=== PATIENT | female | born 1975 | race African-American/Black ===

== ENCOUNTER 2024-01-10 00:45 | Emergency (ER) | payer OTHER, SELFPAY ==
--- NOTE | ~2024-01-10 | XR_ITS ---
EXAMINATION: XR chest 1V portable DATE: 01/10/2024 02:14 INDICATION: Dyspnea. TECHNIQUE: A single frontal view of the chest was obtained. COMPARISON: CT abdomen and pelvis 10/09/2010 FINDINGS: There is no pneumonia, pleural effusion, or pneumothorax. The heart size is normal. IMPRESSION: 1. No acute cardiopulmonary disease. Reviewed, dictated and finalized at location E.
[2024-01-10 00:52] VITALS: BP 142/92; PULSE 68; RESP 18; TEMP 36.8; O2SAT 100
--- NOTE | 2024-01-10 01:52 | ECG_ITS ---
Test Date: 2024-01-10 02:03:24 Measurements Intervals [place] Rate: 63 P: 21 MS: 193 QRS: -10 QRSD: 100 T: 21 QT: 419 QTc: 432 Interpretive Statements SINUS RHYTHM VOLTAGE CRITERIA FOR LVH [MEETS CRITERIA IN ONE OF: R(aVL), S(V1), R(V5), R(V5/V6)+S(V1)] POSSIBLE ANTERIOR MYOCARDIAL INFARCTION , OF INDETERMINATE AGE [30 ms Q WAVE IN V3/V4, OR R < 0.2 mV IN V4] No previous ECG available for comparison Electronically Signed On 01-10-2024 13:45:22 CDT by Linus Duarte M.D.
[2024-01-10] MEDS: METOCLOPRAMIDE HCL INJ 10 MG/2 ML VIAL IV PUSH (02:01)
[2024-01-10 02:06] VITALS: BP 155/80; PULSE 66; RESP 18; O2SAT 100
[2024-01-10 02:33] LABS: Influenza A QL RT-PCR Negative (Negative); Influenza B QL RT-PCR Negative (Negative); RSV RNA, RT-PCR Negative (Negative); SARS-CoV-2 RNA PCR Negative (Negative)
--- NOTE | 2024-01-10 05:03 | ED.HA ---
HPI - Headache General Chief Complaint: Headache Stated Complaint: BUCK, shortness of breath Time Seen by Provider: 01/10/24 01:50 History of Present Illness HPI Narrative: Patient had been having some nausea vomiting, and then she woke up in the night and felt slightly short of breath with a headache and generalized malaise. Thinks she may have had food poisoning. No chest pain Related Data Allergies Allergy/AdvReac Type Severity Reaction Status Date / Time No Known Allergies Allergy Mild Verified 10/08/10 22:49 Review of Systems Review of Systems: All systems reviewed & are unremarkable except as noted in HPI and below Exam Narrative: EXAMINATION OF ORGAN SYSTEMS/BODY AREAS: Constitutional: Vital signs per nursing GENERAL: Appears nauseous HEAD: Normal with no signs of head trauma. EYES: EOMI, conjunctiva normal ENT: Hearing grossly intact LUNGS: Nonlabored breathing. HEART: [Regular rate and rhythm] ABD: [Soft], [nontender to palpation] EXT: Normal range of motion SKIN: [No rashes or lesions.] NEURO: [Alert and oriented x 3. No gross focal sensory or strength deficits.] No facial droop. Clear speech, steady normal gait PSYCH: Normal affect Course Vital Signs Vital signs: Vital Signs Temperature 98.2 F 01/10/24 00:52 Pulse Rate 68 01/10/24 00:52 Respiratory Rate 18 01/10/24 00:52 Blood Pressure 142/92 H 01/10/24 00:52 Pulse Oximetry 100 01/10/24 00:52 Oxygen Delivery Room Air 01/10/24 00:52 Temperature 98.2 F 01/10/24 00:52 Pulse Rate 66 01/10/24 02:06 Respiratory Rate 18 01/10/24 02:06 Blood Pressure 155/80 H 01/10/24 02:06 Pulse Oximetry 100 01/10/24 02:06 Oxygen Delivery Room Air 01/10/24 00:52 MDM - Headache MDM Narrative Medical decision making narrative: 48-year-old female presents to the emergency department for headache, nausea, shortness of breath. Patient is hemodynamically stable. No focal neurological or cranial nerve deficits on exam. No meningeal signs. The headache was gradual in onset, it is not exertional and does not appear consistent with subarachnoid hemorrhage or intracranial bleeding. No trauma. Lungs are clear to auscultation bilaterally. Patient is given Reglan for headache and nausea. EKG on my independent interpretation shows sinus rhythm at rate 63, IA 193, QRS 100, QTC 432. Chest x-ray on my independent interpretation shows possible cardiomegaly but no obvious consolidation or pneumothorax On reevaluation, the patient feels significantly better with the headache and nausea and shortness of breath resolved. No neurological deficits. Patient is comfortable going home for outpatient follow-up with primary care physician and provided with strict return precautions, especially for worsening headaches, neck pain/stiffness, fever or weakness, numbness/tingling or persistent vomiting, chest pain or shortness of breath. Lab Data Labs: Lab Results 01/10/24 Range/Units 01:45 Influenza A (RT-PCR) Negative (Negative) Influenza B (RT-PCR) Negative (Negative) RSV (RT-PCR) Negative (Negative) SARS-CoV-2 RNA (RT-PCR) Negative (Negative) Discharge Plan Discharge Clinical Impression: Acute viral syndrome Patient Disposition: Home, Self-Care Condition: Stable Instructions: Antibiotic Form, Acute Headache (ED), Acute Nausea and Vomiting (ED), Viral Syndrome (ED), Shortness of Breath (ED) Additional Instructions: Please follow-up with primary care doctor, you can always come back to the emergency room if your symptoms return or worsen. Prescriptions: New acetaminophen [Tylenol Extra Strength] 500 mg tablet 1,000 mg PO Q6H PRN (Reason: pain) Qty: 50 0RF ondansetron 4 mg tablet,disintegrating 4 mg PO Q8H PRN (Reason: nausea and vomiting) Qty: 10 0RF Follow-up/Referrals: Anupam,April Walker MD [Primary Care Provider] - 2 Days
== END 2024-01-10 03:35 | disposition home or self-care (01) ==
PROVIDERS: Emergency Provider Emergency Medicine; PCP Family Medicine
DX: B34.9 Viral infection, unspecified (principal); Z20.822 Contact with and (suspected) exposure to COVID-19; R94.31 Abnormal electrocardiogram [ECG] [EKG]
CPT/HCPCS: 71045; 87637; 93005; 96374; 99284; J2765